=== PATIENT | female | born 1995 | race Caucasian/White ===

== ENCOUNTER 2016-10-28 03:00 | Emergency (ER) | payer MEDICAID ==
[2016-10-28 04:00] LABS: BASOPHIL % 0.2 % (0-2); PLATELET COUNT 153 x10^3mcL (130-400); RED CELL DISTRIBUTION WIDTH 13.4 % (11.5-14.5)
[2016-10-28 04:41] LABS: UA SPECIFIC GRAVITY 1.025 (1.005-1.035); microscopic required? YES; urine erythrocyte 3+ (NEGATIVE)
[2016-10-28 06:09] VITALS: BP 98/54
== END 2016-10-28 06:09 | disposition home or self-care (01) ==
LOC: ED 03:00
PROVIDERS: Emergency Medicine
DX: O46.91 Antepartum hemorrhage, unspecified, first trimester (principal); O23.41 Unspecified infection of urinary tract in pregnancy, first trimester; Z3A.14 14 weeks gestation of pregnancy
CPT/HCPCS: J7040; Q0162

== ENCOUNTER 2017-06-04 16:29 | Emergency (ER) | payer MEDICAID ==
[~2017-06-04] VITALS: Ht 157.5 cm; Wt 52.2 kg
[2017-06-04 18:04] VITALS: BP 132/70
== END 2017-06-04 18:04 | disposition home or self-care (01) ==
LOC: ED 16:29
DX: R10.84 Generalized abdominal pain (principal)